=== PATIENT | male | born 1975 | race Asian ===

== ENCOUNTER 2019-05-30 10:07 | Day surgery (SDC) | payer OTHER, SELFPAY ==
[2019-05-30 10:40] VITALS: BP 124/84; PULSE 77; RESP 20; TEMP 35.9; O2SAT 98; BMI 26.3
[2019-05-30] MEDS: SODIUM CHLORIDE 0.9% 1,000 ML 200 ML IV (10:46)
--- NOTE | 2019-05-30 11:24 | PM.HP.1 ---
History of Present Illness History of Present Illness Chief complaint: [id number] Patient History Family & Social History Social History: household members spouse Meds Home Medications and Allergies Home Medications Medication Instructions Recorded Confirmed Type finasteride 1 mg PO DAILY 05/30/19 05/30/19 History Allergies Allergy/AdvReac Type Severity Reaction Status Date / Time No Known Drug Allergies Allergy Verified 05/30/19 10:37 Review of Systems Review of Systems ROS Unobtainable: All systems reviewed & are unremarkable except as noted in HPI and below Exam Vital Signs (past 8 hours): - 05/30/19 10:40 Temperature 96.7 F L Pulse Rate 77 Respiratory Rate 20 Blood Pressure 124/84 Pulse Oximetry 98 Oxygen Delivery Method Room Air Narrative Exam Narrative: Awake alert and oriented x3, no acute distress, lungs clear, heart regular rate and rhythm, no lower extremity edema Assessment & Plan Assessment & Plan narrative: Rectal bleeding, for colonoscopy
[2019-05-30] MEDS: fentaNYL 250 MCG/5 ML INJ IV (11:25)
[2019-05-30] MEDS: MIDAZOLAM 5 MG/5 ML VIAL IV (11:25)
--- NOTE | 2019-05-30 11:41 | PM.OP.ENDO ---
Operative Date/Time/Diagnoses Date of procedure: 05/30/19 Procedure & Clinicians Study performed: Colonoscopy Moderate conscious sedation was administered by the endoscopy nurse and supervised by the endoscopist. The following parameters were monitored: Oxygen saturation, heart rate, blood pressure, and response to care.. Sedation dosage: 5 mg midazolam, 150 mcg fentanyl Indications: Rectal bleeding, lower abdominal pain. This is the patient's 1st colonoscopy. Procedure Notes Procedure in detail: Prior to the procedure, history and physical was performed, and patient medications and allergies were reviewed. Preprocedure nursing history and assessment was reviewed. Patient identification and proposed procedure were verified by the physician and nurse in the procedure room. The physical status of the patient was reassessed after the procedure. After informed consent was obtained including risks, benefits, and alternatives, the scope was passed under direct vision. Throughout the procedure, the patient's blood pressure, pulse, and oxygen saturations were monitored continuously. The colonoscope was introduced through the anus and advanced to the cecum as identified by the appendiceal orifice and ileocecal valve. The patient tolerated the procedure well. Bowel prep was deemed adequate to detect polyps greater than 5 mm. Perianal and digital rectal examinations were unremarkable. Retroflexion in the rectum revealed small grade 1 internal hemorrhoids. The remainder of the colon was normal-appearing. Impression: Internal hemorrhoids Normal appearing colon No specimens taken Sedation minutes: 18 Complications: other (EBL none. No complications) Post-procedure Plan for aftercare: Repeat colonoscopy at 49 years old for screening purposes Resume home medications Resume previous diet Follow up in GI clinic as previously scheduled Discharge home with escort
[2019-05-30 11:45] VITALS: BP 99/55; PULSE 60; RESP 10; TEMP 36.4; O2SAT 99
[2019-05-30 11:50] VITALS: BP 110/65; PULSE 67; RESP 15; O2SAT 97
[2019-05-30 11:55] VITALS: BP 107/67; PULSE 60; RESP 16; TEMP 36.5; O2SAT 97
[2019-05-30 12:00] VITALS: BP 102/67; PULSE 67; RESP 16; TEMP 35.9; O2SAT 98
== END 2019-05-30 12:19 | disposition home or self-care (01) ==
PROVIDERS: PCP General Practice; Visit Provider Internal Medicine
PROC: 0DJD8ZZ Inspection of Lower Intestinal Tract, Via Natural or Artificial Opening Endoscopic (ICD-10-PCS; CPT 45378; principal; 2019-05-30 11:30)
DX: R10.30 Lower abdominal pain, unspecified (principal); K62.5 Hemorrhage of anus and rectum; K64.0 First degree hemorrhoids
CPT/HCPCS: 45378; J2250; J3010

== ENCOUNTER → 2020-10-08 13:42 | Outpatient (CLI) | payer OTHER, SELFPAY ==
[2020-10-08 14:26] LABS: COVID19 -Nasal RAPID Negative (Negative)
== END ==
PROVIDERS: PCP General Practice; Visit Provider Family Medicine Sleep Medicine
DX: Z20.822 Contact with and (suspected) exposure to COVID-19 (principal)
CPT/HCPCS: 87635; C9803